=== PATIENT | male | born 1985 | race Two or more races ===

== ENCOUNTER 2023-04-08 13:14 | Emergency (ER) | payer MEDICAID ==
[~2023-04-08] VITALS: Ht 177.8 cm; Wt 75.0 kg
[2023-04-08 13:29] VITALS: BP 128/83; PULSE 88; RESP 16; TEMP 98.5; O2SAT 98
== END 2023-04-08 16:35 | disposition left against medical advice (07) ==
LOC: ER 13:14
DX: M54.9 Dorsalgia, unspecified (principal); Z53.21 Procedure and treatment not carried out due to patient leaving prior to being seen by health care provider
CPT/HCPCS: 99281